=== PATIENT | male | born 1960 ===

== ENCOUNTER 2023-04-06 17:57 | Inpatient (IN) | payer BC ==
[~2023-04-06] VITALS: Ht 180.3 cm; Wt 133.9 kg
[2023-04-06 22:42] VITALS: BP 168/75
[2023-04-06] MEDS ORDERED: LOSA50 PO (22:51)
[2023-04-06] MEDS ORDERED: ATORVASTATIN CA20 MG PO (22:52)
[2023-04-06] MEDS ORDERED: OMEP20ER PO (22:52)
[2023-04-06] MEDS ORDERED: AMLODIPINE BESY10 MG PO (22:52)
[2023-04-06] MEDS ORDERED: CARVEDILOL25 M9 PO (22:53)
[2023-04-06] MEDS ORDERED: INSULANI (22:54)
[2023-04-06] MEDS ORDERED: XARELTO20 M1 PO (22:55)
[2023-04-06] MEDS ORDERED: Ventolin/Prove6.7 GM INH (22:56)
[2023-04-06] MEDS ORDERED: TADALAFIL5 M1 PO (22:57)
[2023-04-06] MEDS ORDERED: ACTOS30 MG PO (22:57)
[2023-04-06 23:00] VITALS: BP 162/62
[2023-04-06] MEDS ORDERED: Albuterol HFA200 ACT/6.7 GM INH INH PRN (23:50)
[2023-04-06] MEDS ORDERED: FLU VACC QS2023-24(6MOS UP)/PF 60 MCG/0.5 ML SYRINGE IM ONE (23:55)
[2023-04-07] VITALS (11 sets, daily range): BP systolic 142–165; BP diastolic 49–74
--- NOTE | 2023-04-07 00:26 | NUR ---
UPDATE UPDATE GIVEN TO SPOUSE PER PT'S REQUEST. ALL QUESTIONS ANSWERED. DR. YOU TO BEDSIDE FOR ASSESSMENT. WILL CONTINUE TO PROCESS ORDERS. SOHAIL PARDO OF THIS NOTE.
[2023-04-07 01:37] LABS: Albumin, Blood 3.4 g/dL (3.4-5.0); Albumin/Globulin Ratio 1.1 (0.8-1.8); Bilirubin, Total 0.6 mg/dL (0.1-1.0); Bun/Creatinine Ratio 14.4 (12.0-20.0); Calcium, Blood 9.1 mg/dL (8.5-10.1); Creatinine, Blood 0.97 mg/dL (0.60-1.20); Globulin, Blood 3.1 g/dL (2.2-4.0); Potassium, Blood 3.7 mmol/L (3.5-5.5); Total Protein, Blood 6.5 g/dL (6.4-8.2)
[2023-04-07 01:50] LABS: Anti-Xa UFH, PHA Monitoring 0.61 IU/mL; International Normalized Ratio 1.12; Prothrombin Time Results 11.7 Sec (9.7-11.5)
[2023-04-07] MEDS ORDERED: Heparin Sodium,Porcine/0.5 NS 500 ML IV SCH (02:00)
[2023-04-07 02:42] LABS: Hematocrit 19.7 % (37.0-53.0); Hemoglobin 6.6 g/dL (13.5-17.5); Mean Corpuscular HGB 24.8 pg (26.0-34.0); Mean Corpuscular HGB Conc 33.5 g/dL (31.5-36.5); Mean Corpuscular Volume 74 fL (80-100); NRBC ABSOLUTE 0.05 K/mm3 (0.00-0.02); NRBC Auto 1.8 /100 WBC (0.0-0.2); RDW Coefficient Variation 23.8 % (11.7-14.2); Red Blood Cell Count 2.66 M/mm3 (4.30-5.90)
[2023-04-07 02:50] LABS: Platelet Count 20 K/mm3 (150-400)
[2023-04-07] MEDS ORDERED: NS 250 ML IV PRN (02:55)
--- NOTE | 2023-04-07 02:55 | NUR ---
CRITICAL RESULTS THIS RN NOTIFIED BY LAB PT'S MORNING CBC INDICATED Hgb 6.[address] MUNIZ NOTIFIED WITH ORDERS TO ADMINISTER 1 UNIT OF PRBC WELL HOLD OFF INITATION OF HEPARIN gtt. NO FURTHER ORDERS AT THIS TIME. SOHAIL PARDO OF THIS NOTE.
[2023-04-07 03:25] LABS: BAND PERCENT MAN 2 % (0-8); BASOPHILS PERCENT MAN 0 % (0-2); EOSINOPHILS ABSOLUTE MAN 0.02 K/mm3 (0.00-0.68); EOSINOPHILS PERCENT MAN 1 % (0-6); LYMPHOCYTES % ATYPICAL MANUAL 1 % (0-0); LYMPHOCYTES PERCENT MAN 67 % (21-46); MONOCYTES ABSOLUTE MAN 0.42 K/mm3 (0.16-1.47); MONOCYTES PERCENT MAN 15 % (4-13); NEUTROPHILS ABSOLUTE MAN 0.42 K/mm3 (1.96-9.15); OTHER CELL PERCENT MAN 1 % (0-0); SEG NEUTROPHILS PERCENT MAN 13 % (41-73); TOTAL CELLS COUNTED 100
[2023-04-07] MEDS ORDERED: Omeprazole 20 MG CapCR PO SCH (06:00)
--- NOTE | 2023-04-07 06:35 | NUR ---
ARRIVAL TO PCU NOTE/SHIFT SUMMARY PT ARRIVED VIA DIRECT ADMIT TO PCU 19 ~ 2230 ON 04/06/23. TRANSFERED FROM EMS [facility] TO PCU BED VIA STANDBY ASSIST. D5 RUNNING UPON ARRIVAL. A/Ox4 AND COOPERATIVE WITH CARE. ANSWERS QUESTIONS APPROPRIATELY AND ABLE TO MAKE HIS NEEDS KNOWN. CARDIAC, MAINTAINS SB-SR 50-70'S WITH NO REPORT OF CP, PRESSURE, OR DIZZINESS SINCE ARRIVAL. SBP HAS BEEN ELEVATED RANGING 140-160'S. PT TO BE ORIGINALLY STARTED ON HEPARIN, BUT MEDICATION HELD PER MD ORDER DUE TO CRITICAL LOW Hgb + PLT. SEE CRITICAL VALUES NOTE FOR DETAILS. NO OBVIOUS SIGNS OF BLEEDING NOTED. 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 RESPIRATORY, MAINTAINS SPO2 >90% ON RA WITH NO REPORT OF SOB OR DYSPNEA AT REST. SOME EXERTIONAL DYSPNEA NOTED WITH MODERATE EXERTION. NOTED TO DESAT INTO LOW 80'S WHEN ASLEEP. PT REPORTS HE IS SUPPOSE TO WEAR CPAP AT NIGHT, BUT IS NON-COMPLIANT. GI/, ABLE TO AMBULATE TO BATHROOM VIA MINIMAL STAFF ASSIST FOR LINE MANAGEMENT. SKIN C/D/I WITH NO WOUNDS NOTED. PRB'S INFUSING PER EMAR AT THIS TIME WITH NO ADVERSE REACTIONS NOTED. NO NEW ORDERS AT THIS TIME, WILL REPORT TO ONCOMING RN. SOHAIL PARDO OF THIS NOTE.
[2023-04-07] MEDS ORDERED: Insulin Human Lispro 100 Units/ML 3ML Syringe SC SCH (07:30)
[2023-04-07] MEDS ORDERED: Atorvastatin 40 MG Tab PO SCH (09:00)
[2023-04-07] MEDS ORDERED: AmLODIPine Besylate 5 MG Tab PO SCH (09:00)
[2023-04-07] MEDS ORDERED: Rivaroxaban 10 MG Tab PO SCH (09:00)
[2023-04-07] MEDS ORDERED: Carvedilol 25 MG Tab PO SCH (09:00)
[2023-04-07] MEDS ORDERED: Losartan Potassium 50 MG Tab PO SCH (09:00)
--- NOTE | 2023-04-07 10:15 | NUR ---
AM NOTE: PATIENT ALERT AND ORIENTED X4. PERRLA, WEARING GLASSES. DENIES NUMBNESS/TINGLING. UP WITH SBA TO HELP MANAGE CORDS. TELE SHOWING SB/SR WITH HR 50-70'S. SBP 150-160'S. DENIES CHEST PAIN/PRESSURE/PALPITATIONS. PPP. BLOOD TRANSFUSED THIS AM. ON ROOM AIR WHILE AWAKE SATING ABOVE 95%. PER NOC SHIFT PATIENT NEEDING UP TO 2L DURING SLEEP. PATIENT NONCOMPLIANT WITH HOME CPAP. EVEN AND UNLABORED RESPIRATIONS. LUNGS SOUNDING CLEAR AND DIM IN BASES WITH FINE CRACKLES IN LEFT LOWER LOBE. DENIES SOB/COUGH. BOWEL TONES PRESENT. DENIES ABDOMINAL PAIN. NO SIGNS OF BLEEDING AT THIS TIME. PATIENT REPORTS HISTORY OF HEMORRHOIDS THAT OCCASIONALY BLEED. PATIENT ALSO REPORTS HIOSTORY OF DIVERTICULITIS AND STOMACH ULCER. TOLERATING PO DIET. UP TO BATHROOM WITH SBA. ACHS BLOOD SUGAR CHECKS. SKIN OVERALL C/D/I. MINIMAL EDEMA NOTED TO BLE. DR. NAZARIO, DR. Cruz AND DR. PHAM AT BEDSIDE THIS AM FOR PROVIDER ROUNDING, THIS RN PRESENT. ORDERS FOR BILATERAL LOWER EXTREMITY VENOUS DUPLEX. 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 THESE RESULTS CALLED INTO DR. NAZARIO BY THIS RN. WATER RESOURCE CONSULTANT IN ROOM AT THIS TIME DRAWING POST BLOOD TRANSFUSION LABS. CALL LIGHT IN REACH. PATIENT DENIES NEEDS AT THIS TIME. THIS RN EDUCATED ON FALL PREVENTION AND USING CALL LIGHT.
[2023-04-07 10:33] LABS: Hematocrit 22.1 % (37.0-53.0); Hemoglobin 7.3 g/dL (13.5-17.5); IMMATURE RETIC FRACTION 17.6 % (2.3-16.0); RETICULOCYTE ABSOLUTE 0.0101 M/mm3 (0.0200-0.1100); RETICULOCYTE COUNT PERCENT 0.35 % (0.50-2.50)
[2023-04-07 11:12] LABS: Bilirubin, Direct 0.1 mg/dL (0.0-0.3); Bilirubin, Indirect 0.5 mg/dL (0.1-0.7); Bilirubin, Total 0.6 mg/dL (0.1-1.0); Percent Saturation 75.8 % (20.0-50.0); Uric Acid, Blood 6.9 mg/dL (3.5-7.2)
--- NOTE | 2023-04-07 15:06 | NUR ---
Upon receiving a referral for spiritual care, I visited the patient, He is sitting on a chair and alert. He tells me about his medical problems and his concerns about not having concrete answers as to what might be happening with him clinically. He states that he would prefer not to go all the way home to [facility] and not have medical direction. He talks about his many hobbies, careers, adventures and studies. He shares about his Sabianism upbringing, his study of world religions and his current [employer] leanings. He shares about his and two sons and how difficult it is to be away form his support system. I provide therapeutic listening, gentle encouragement and a calming presence. Patient responded well and showed signs of an elevated mood. I will continue to remain available to patient and fmaily.
--- NOTE | 2023-04-07 16:48 | NUR ---
DR. URBANO BY TO SEE PATIENT. PLAN FOR POSSIBLE BONE MARROW BIOPSY TOMORROW. DR. PHAM UPDATED BY THIS RN. PATIENT UPDATED AND DENIED THE NEED FOR THIS RN TO CALL . ALSO DENIED NEED FOR SPIRITUAL CARE VISIT AT THIS TIME.
--- NOTE | 2023-04-07 17:46 | NUR ---
SHIFT SUMMARY: NO ACUTE CHANGES, SEE PREVIOUS NOTES. PATIENT REMAINS ALERT AND ORIENTED. ON ROOM AIR. VITAL SIGNS STABLE. TELE SHOWING SB/SR. DENIES PAINS. PLAN FOR POSSIBLE BONE MARROW BIOPSY TOMORROW. EATING DINNER AT THIS TIME IN RECLINER. CALL LIGHT IN REACH.
[2023-04-07 20:49] LABS: Hematocrit 23.4 % (37.0-53.0); Hemoglobin 7.7 g/dL (13.5-17.5)
[2023-04-08] VITALS (12 sets, daily range): BP systolic 140–184; BP diastolic 64–115
[2023-04-08 04:09] LABS: Hematocrit 21.8 % (37.0-53.0); Hemoglobin 7.1 g/dL (13.5-17.5); Mean Corpuscular HGB 25.2 pg (26.0-34.0); Mean Corpuscular HGB Conc 32.6 g/dL (31.5-36.5); Mean Corpuscular Volume 77 fL (80-100); NRBC ABSOLUTE 0.05 K/mm3 (0.00-0.02); NRBC Auto 1.8 /100 WBC (0.0-0.2); RDW Coefficient Variation 23.2 % (11.7-14.2); RDW Standard Deviation 65.7 fL (35.1-46.3); Red Blood Cell Count 2.82 M/mm3 (4.30-5.90); White Blood Cell Count 2.81 K/mm3 (4.00-11.30)
[2023-04-08 04:15] LABS: Platelet Count 17 K/mm3 (150-400)
[2023-04-08 04:29] LABS: Albumin, Blood 3.3 g/dL (3.4-5.0); Albumin/Globulin Ratio 1.1 (0.8-1.8); Bilirubin, Total 0.5 mg/dL (0.1-1.0); Bun/Creatinine Ratio 18.9 (12.0-20.0); Creatinine, Blood 1.06 mg/dL (0.60-1.20); Globulin, Blood 3.1 g/dL (2.2-4.0); Potassium, Blood 3.8 mmol/L (3.5-5.5); Total Protein, Blood 6.4 g/dL (6.4-8.2)
[2023-04-08 04:44] LABS: BAND PERCENT MAN 4 % (0-8); BASOPHILS PERCENT MAN 0 % (0-2); BLASTS PERCENT MAN 3 % (0-0); EOSINOPHILS PERCENT MAN 0 % (0-6); LYMPHOCYTES % ATYPICAL MANUAL 2 % (0-0); LYMPHOCYTES ABSOLUTE MAN 2.13 K/mm3 (0.84-5.20); LYMPHOCYTES PERCENT MAN 74 % (21-46); MONOCYTES ABSOLUTE MAN 0.22 K/mm3 (0.16-1.47); MONOCYTES PERCENT MAN 8 % (4-13); NEUTROPHILS ABSOLUTE MAN 0.36 K/mm3 (1.96-9.15); SEG NEUTROPHILS PERCENT MAN 9 % (41-73); TOTAL CELLS COUNTED 100
--- NOTE | 2023-04-08 05:45 | NUR ---
SHIFT SUMMARY A/Ox4 AND COOPERATIVE WITH CARE. ANSWERED QUESTION APPROPRIATELY AND ABLE TO MAKE HIS NEEDS KNOWN. CARDIAC, REMAINS IN SB-SR 50-70'S WITH NO REPORT OF CP, PRESSURE, OR DIZZINESS. SBP REMAINS SLIGHTLY ELEVATED RANGING 140-160'S. RESPIRATORY, MAINTAINS SPO2 >90% ON RA WHEN AWAKE. TENDS TO DESAT INTO MID-LOW 80'S WITHOUT O2 WHEN SLEEPING. REPORTS HE IS SUPPOSE TO WEAR CPAP AT NIGHT, BUT IS NON-COMPLIANT. MAINTAINS SPO2 >90% ON 2L NC WHEN ASLEEP. GI/, DENIES N/V/D AT THIS TIME. BS PRESENT THROUGHOUT. ABLE TO INDEPENDENTLY AMBULATE TO BATHROOM TO VOID. MORNING LABS SHOWED PLT OF 17 AND A Hgb OF 7.1. DR. YOU MADE AWARE WITH NO NEW ORDERS AT THIS TIME. SCHEDULED FOR BONE MARROW BIOPSY IN THE AM. NO NEW ORDERS AT THIS TIME, WILL REPORT TO ONCOMING RN. SOHAIL PARDO OF THIS NOTE.
[2023-04-08] MEDS ORDERED: HydrALAZINE HCl 25 MG Tab PO SCH (09:00)
[2023-04-08] MEDS ORDERED: Naloxone HCl 0.4MG / ML 1ML Vial ONE (12:56)
[2023-04-08] MEDS ORDERED: Flumazenil 0.1 MG / ML 5ML Vial ONE (12:56)
[2023-04-08] MEDS ORDERED: Midazolam HCl 1MG / ML 2ML Vial ONE (12:56)
[2023-04-08] MEDS ORDERED: FentaNYL Citrate 50 MCG/ML 2 ML Injection ONE (12:57)
[2023-04-08] MEDS ORDERED: NS 1,000 ML IV ONE (12:57)
[2023-04-08] MEDS ORDERED: NS 250 ML IV ONE (12:58)
--- NOTE | 2023-04-08 13:22 | NUR ---
pt is going for bone marrow biopsy at this time.
--- NOTE | 2023-04-08 14:56 | NUR ---
back to room patient back into room. site looked at by this rn and corner brace block machine operator bryan. site is clean dry and intact. no bruising bleeding. site is nontender and soft. patient has some numbness and tingling in hands from the position for the biopsy. numbness and tingling has improved significantly since changing position from laying on arms and elbows. vitals stable. patient is to log roll when rolling and to remain supine for two hours.
--- NOTE | 2023-04-08 15:37 | NUR ---
Pt is sleeping, flat on his back. Continuous spo2 monitor and sequential vital signs are in progress.
[2023-04-08] MEDS ORDERED: HydroCHLOROthiazide 25 mg Tab PO SCH (16:00)
--- NOTE | 2023-04-08 17:06 | NUR ---
Pt ambulatory to bathroom after 2+ hours strict bedrest. Site of biopsy is clean, dry and intact. No swelling, bruising nor bleeding noted. Pt says he feels good up and walking around.
[2023-04-08 19:58] LABS: HAPTOGLOBIN 143 mg/dL (30-200)
[2023-04-09 00:03] VITALS: BP 155/51
[2023-04-09 04:36] LABS: Hematocrit 24.3 % (37.0-53.0); Hemoglobin 8.2 g/dL (13.5-17.5); Mean Corpuscular HGB Conc 33.7 g/dL (31.5-36.5); Mean Corpuscular Volume 77 fL (80-100); NRBC ABSOLUTE 0.06 K/mm3 (0.00-0.02); NRBC Auto 2.9 /100 WBC (0.0-0.2); RDW Coefficient Variation 22.5 % (11.7-14.2); RDW Standard Deviation 62.8 fL (35.1-46.3); Red Blood Cell Count 3.15 M/mm3 (4.30-5.90); White Blood Cell Count 2.04 K/mm3 (4.00-11.30)
[2023-04-09 04:43] VITALS: BP 166/62
--- NOTE | 2023-04-09 04:44 | NUR ---
SHIFT SUMMARY NO ACUTE CHANGES OVERNIGHT. PT DENIES CHEST PAIN/PRESSURE, SOB, AND DIZZINESS. DENIES DIZZINESS WITH AMBULATION/EXERTION. BP STABLE; HTN NOTED. SB/SR ON MONITOR WITH HR 50-60'S. ON 2L VIA NC WITH SLEEP ONLY, OTHERWISE ON RA WITH SPO2 >92%. AFEBRILE. DENIES PAIN. AT BEDSIDE T/O THIS SHIFT. PT IND TO BATHROOM. DRESSING TO LOWER BACK C/D/I. BED IN LOWEST POSITION AND CALL LIGHT WITHIN REACH. THIS RN WILL REPORT TO ONCOMING DAYSHIFT RN.
[2023-04-09 04:48] LABS: Platelet Count 16 K/mm3 (150-400)
[2023-04-09 05:04] LABS: Calcium, Blood 9.1 mg/dL (8.5-10.1); Creatinine, Blood 1.11 mg/dL (0.60-1.20); Potassium, Blood 3.8 mmol/L (3.5-5.5)
[2023-04-09 06:16] LABS: BAND PERCENT MAN 2 % (0-8); BASOPHILS ABSOLUTE MAN 0.02 K/mm3 (0.00-0.23); BASOPHILS PERCENT MAN 1 % (0-2); BLASTS PERCENT MAN 11 % (0-0); EOSINOPHILS ABSOLUTE MAN 0.04 K/mm3 (0.00-0.68); EOSINOPHILS PERCENT MAN 2 % (0-6); LYMPHOCYTES PERCENT MAN 69 % (21-46); MONOCYTES PERCENT MAN 0 % (4-13); NEUTROPHILS ABSOLUTE MAN 0.34 K/mm3 (1.96-9.15); SEG NEUTROPHILS PERCENT MAN 15 % (41-73); TOTAL CELLS COUNTED 100
[2023-04-09 07:51] VITALS: BP 186/80
[2023-04-09] MEDS ORDERED: HydroCHLOROthiazide 25 mg Tab PO SCH (09:00)
[2023-04-09] MEDS ORDERED: HydrALAZINE HCl 25 MG Tab PO SCH (09:00)
--- NOTE | 2023-04-09 10:17 | NUR ---
Pt was quite secure he expressed, in his decision to not have the IVC filter placed. He expressed more concern about his existing blood clots and that he wants to continue on his xarelto to prevent them from getting larger or from getting new ones. Both Dr. Sierra and Dr. Lazcano rounded and spoke with him and his at beside this morning. Plan is for discharge today.
[2023-04-09] MEDS ORDERED: HYDCHL25 PO (11:15)
[2023-04-09] MEDS ORDERED: ACYC400 PO (11:36)
[2023-04-09] MEDS ORDERED: LEVFLO500 PO (11:36)
== END 2023-04-09 12:10 | disposition home or self-care (01) | DRG 810 ==
LOC: PCU 17:57
PROVIDERS: Family Medicine; Student in an Organized Health Care Education/Training Program; ADMIT Internal Medicine
PROC: 079T3ZX Drainage of Bone Marrow, Percutaneous Approach, Diagnostic (ICD-10-PCS; principal; 2023-04-08)
PROC: 30233N1 Transfusion of Nonautologous Red Blood Cells into Peripheral Vein, Percutaneous Approach (ICD-10-PCS; 2023-04-08)
DX: D61.818 Other pancytopenia (principal); R07.89 Other chest pain; E11.9 Type 2 diabetes mellitus without complications; F10.90 Alcohol use, unspecified, uncomplicated; I10 Essential (primary) hypertension; E66.9 Obesity, unspecified; I25.10 Atherosclerotic heart disease of native coronary artery without angina pectoris; E78.5 Hyperlipidemia, unspecified; Z87.19 Personal history of other diseases of the digestive system; Z98.890 Other specified postprocedural states; I25.2 Old myocardial infarction; Z95.5 Presence of coronary angioplasty implant and graft; Z79.891 Long term (current) use of opiate analgesic; Z79.899 Other long term (current) drug therapy; Z79.4 Long term (current) use of insulin; Z79.01 Long term (current) use of anticoagulants; Z86.718 Personal history of other venous thrombosis and embolism; Z87.11 Personal history of peptic ulcer disease; Z87.891 Personal history of nicotine dependence; K64.9 Unspecified hemorrhoids
CPT/HCPCS: 20225; 36415; 36430; 77012; 80048; 80053; 82247; 82248; 82728; 82947; 83010; 83540; 83550; 83615; 84484; 84550; 85014; 85018; 85025; 85045; 85097; 85520; 85610; 85730; 86850; 86900; 86901; 86923; 93005; 93010; 93970; 94760; A9270; J2250; J2310; J3010; J7030; J7050; P9016